=== PATIENT | male | born 1955 | race Caucasian/White ===

== ENCOUNTER 2018-03-15 05:49 | Day surgery (SDC) | payer OTHER ==
[~2018-03-15] VITALS: Ht 177.8 cm; Wt 117.9 kg
[~2018-03-15 05:49] MED LIST: AMBIEN5 MG PO; AMLODIPINE5 MG PO; ASPIRIN325 MG PO; ATORVASTATIN CA40 MG PO; BENAZEPRIL PO; ESOMEPRAZOLE MA40 MG PO; MELATONIN5 M3 PO; MILK OF MAG30 ML/UDC PO; OXYCODO-APAP1 TAB; TYLENOL PM PO; WARFARIN5 MG PO
[2018-03-15 08:09] VITALS: BP 150/80
== END 2018-03-15 08:25 | disposition home or self-care (01) | DRG 951 ==
LOC: ENDO 05:49
PROVIDERS: ATTEND Surgery
PROC: 0DJD8ZZ Inspection of Lower Intestinal Tract, Via Natural or Artificial Opening Endoscopic (ICD-10-PCS; principal; 2018-03-15)
DX: Z12.11 Encounter for screening for malignant neoplasm of colon (principal); I10 Essential (primary) hypertension; E78.5 Hyperlipidemia, unspecified

== ENCOUNTER 2022-07-23 18:31 | Observation (INO) | payer MEDICARE, BC ==
[~2022-07-23] VITALS: Ht 177.8 cm; Wt 136.0 kg
[2022-07-23 18:59] LABS: URINE BILIRUBIN - DIPSTICK NEGATIVE (NEGATIVE); URINE BLOOD DIPSTICK NEGATIVE (NEGATIVE); URINE COLOR YELLOW; URINE GLUCOSE - DIPSTICK NEGATIVE (NEGATIVE); URINE KETONE NEGATIVE (NEGATIVE); URINE LEUK ESTERASE NEGATIVE (NEGATIVE); URINE PH 6.5 (4.5-8.0); URINE PROTEIN - DIPSTICK NEGATIVE (NEG-TRACE); URINE UROBILINOGEN - DIPSTICK 0.2 E.U./dL (0.2)
[2022-07-23 19:00] LABS: BASO% 0.3 % (0-3); EOS% 0.5 % (0-8); HEMATOCRIT 50.3 % (39.0-50.0); HEMOGLOBIN 16.6 g/dl (14.0-18.0); IMMATURE GRANULOCYTES 0.1 % (0.0-5.0); LYMPH% 10.4 % (15-41); MEAN CELL VOLUME 96.9 fL CALC (80.0-100.0); NEUT# 12.54 thou/uL (1.82-7.42); NEUT% 81.7 % (42-76); RED BLOOD COUNT 5.19 mill/uL (4.70-6.10); RED CELL DISTRI WIDTH 13.9 % (11.5-15.5)
[2022-07-23 19:00] LABS: URINE NITRITE - DIPSTICK NEGATIVE (Negative)
[2022-07-23 19:07] VITALS: BP 170/111
[2022-07-23 19:17] LABS: ALBUMIN 4.5 g/dL (3.2-5.0); ALKALINE PHOSPHATASE 81 u/l (38-126); ANION GAP 10 (6-22 (CALC)); BILIRUBIN, TOTAL 0.4 mg/dL (0.2-1.3); BUN 19 mg/dL (8-23); BUN/CREATININE RATIO 16 (12-20 (CALC)); CARBON DIOXIDE 32 mmol/l (22-30); CHLORIDE 100 mmol/l (95-108); CREATININE 1.2 mg/dL (0.7-1.3); GFR FOR AFR.AMER. > 60 ML/MIN (>=60 (CALC)); GFR OTHER RACES > 60 ML/MIN (>=60 (CALC)); LIPASE 95 u/l (23-300); POTASSIUM 3.9 mmol/l (3.5-5.1); SGOT/AST 29 u/l (19-48); SODIUM 137 mmol/l (137-146); TOTAL PROTEIN 8.1 g/dL (6.3-8.2)
[2022-07-23 20:01] VITALS: BP 185/103
[2022-07-23 20:15] VITALS: BP 184/87
[2022-07-23 20:37] VITALS: BP 172/84
[2022-07-23 21:28] VITALS: BP 184/87
[2022-07-24] VITALS (13 sets, daily range): BP systolic 126–158; BP diastolic 71–88
[2022-07-25 04:17] VITALS: BP 141/81
[2022-07-25 06:00] LABS: HEMATOCRIT 44.5 % (39.0-50.0); IMMATURE GRANULOCYTES 0.1 % (0.0-5.0); LYMPH% 4.5 % (15-41); MEAN CORPUSCULAR HGB 32.4 pG CALC (26.0-32.0); MEAN CORPUSCULAR HGB CONC 32.4 g/dL CAL (32.0-36.0); MONO% 3.9 % (2-13); NEUT# 18.36 thou/uL (1.82-7.42); NEUT% 91.5 % (42-76); RED BLOOD COUNT 4.45 mill/uL (4.70-6.10); RED CELL DISTRI WIDTH 14.2 % (11.5-15.5)
[2022-07-25 06:47] LABS: HEMOGLOBIN 14.4 g/dl (14.0-18.0)
[2022-07-25 07:19] VITALS: BP 147/77
[2022-07-25 14:41] VITALS: BP 121/50
[2022-07-25 19:08] VITALS: BP 151/66
[2022-07-26 04:51] VITALS: BP 149/86
[2022-07-26 06:01] LABS: BASO% 0.2 % (0-3); EOS% 0.1 % (0-8); HEMATOCRIT 45.5 % (39.0-50.0); HEMOGLOBIN 14.3 g/dl (14.0-18.0); IMMATURE GRANULOCYTES 0.2 % (0.0-5.0); LYMPH% 6.7 % (15-41); MEAN CELL VOLUME 102.2 fL CALC (80.0-100.0); MEAN CORPUSCULAR HGB 32.1 pG CALC (26.0-32.0); MEAN CORPUSCULAR HGB CONC 31.4 g/dL CAL (32.0-36.0); MONO% 5.7 % (2-13); NEUT# 15.76 thou/uL (1.82-7.42); NEUT% 87.1 % (42-76); RED BLOOD COUNT 4.45 mill/uL (4.70-6.10); RED CELL DISTRI WIDTH 14.3 % (11.5-15.5)
[2022-07-26 06:32] VITALS: BP 166/80
[2022-07-26] MEDS ORDERED: AMOX/K CLAV875 M1 PO ×2 (12:25→13:34)
[2022-07-26] MEDS ORDERED: PERCOCET 5/325M1 TAB PO (12:25)
[2022-07-26] MEDS ORDERED: PERCOCET 5/321 COMBO PO (13:34)
== END 2022-07-26 13:07 | disposition home or self-care (01) ==
LOC: ED 18:31 → ED-I 19:55 → ED 20:09 → MS2 20:10
PROVIDERS: Nurse Practitioner; ADMIT Surgery; ATTEND Surgery
PROC: 0DTJ4ZZ Resection of Appendix, Percutaneous Endoscopic Approach (ICD-10-PCS; principal; 2022-07-24)
DX: K35.33 Acute appendicitis with perforation, localized peritonitis, and gangrene, with abscess (principal); I10 Essential (primary) hypertension; Z20.822 Contact with and (suspected) exposure to COVID-19
CPT/HCPCS: J0131; J1100; Q9967